=== PATIENT | male | born 1945 | race Caucasian/White ===

== ENCOUNTER 2020-03-14 06:43 | Day surgery (SDC) | payer MEDICARE, OTHER ==
[2020-03-14] MEDS ORDERED: Propofol 200 MG/20 ML SDV IV ONE (06:44)
[2020-03-14] MEDS ORDERED: Sodium Chloride 0.9% 10 ML Syringe FLUSH PRN (06:45)
[2020-03-14] MEDS ORDERED: Lactated Ringers 1,000 ML IV SCH (06:45)
--- NOTE | 2020-03-14 08:16 | PCM.OPNOTE ---
- General Post-Op/Procedure Note Date of Surgery/Procedure: 03/14/20 Operative Procedure(s): c scope with biopsy Findings: ascending colon polyp Pre Op Diagnosis: screening Post-Op Diagnosis: ascending colon polyp Anesthesia Technique: MAC Primary Surgeon: Sudheer Yancey Anesthesia Provider: Christos Noel Pathology: colon polyp Complications: None Condition: Good Free Text/Narrative:: see dictation
--- NOTE | 2020-03-14 14:34 | OR ---
DATE OF OPERATION: 03/14/2020 SURGEON: Sudheer Yancey MD PROCEDURE PERFORMED: Colonoscopy with cold forceps biopsy. PREOPERATIVE DIAGNOSIS: Need for colon cancer screening. POSTOPERATIVE DIAGNOSIS: Ascending colon polyp. INDICATIONS FOR PROCEDURE: This is a 75-year-old white male who presents for routine followup. Offered and accepted colonoscopy. DESCRIPTION OF PROCEDURE: After an excellent IV sedation was administered, digital rectal exam was performed. No marked abnormality was noted. Flexible colonoscope was inserted and advanced to the cecum. The prep was excellent. Following findings were noted: Ascending colon: A small polypoid lesion, biopsied with the biopsy forceps and sent for permanent. Transverse colon: Unremarkable. Descending colon: Unremarkable. Sigmoid and Rectum: Unremarkable. Colon was deflated, and the scope was removed. The patient tolerated the procedure well. Results will be sent to him via letter. /[id number] /[id number]
== END 2020-03-14 08:52 | disposition home or self-care (01) ==
LOC: FB.SDS 06:43
PROVIDERS: ATTEND Surgery
DX: Z12.11 Encounter for screening for malignant neoplasm of colon (principal); D12.2 Benign neoplasm of ascending colon; E66.9 Obesity, unspecified; F17.200 Nicotine dependence, unspecified, uncomplicated; Z68.28 Body mass index [BMI] 28.0-28.9, adult; Z79.899 Other long term (current) drug therapy
CPT/HCPCS: 00812-QZ; 88305; J2704; J7120